=== PATIENT | male | born 1970 ===

== ENCOUNTER 2019-07-25 03:21 | Inpatient (IN) | payer OTHER ==
[~2019-07-25] VITALS: Ht 162.6 cm; Wt 78.7 kg
[2019-07-25 04:58] VITALS: BP 119/83
[2019-07-25] MEDS ORDERED: ATOR20TA37 PO (06:23)
[2019-07-25 06:35] VITALS: BP 109/67
[2019-07-25 07:21] LABS: MEAN CORPUSCULAR HEMOGLOBIN 30.2 pg (27.5-34.5); MEAN CORPUSCULAR HGB CONC 33.3 g/dL (33.2-36.2); MEAN CORPUSCULAR VOLUME 90.8 fL (81-97); MEAN PLATELET VOLUME 8.1 fL (7.4-10.4); PLATELET COUNT 290 x10^3/uL (130-400); RED BLOOD COUNT 5.31 x10^6/uL (4.38-5.82); RED CELL DISTRIBUTION WIDTH 13.2 % (9.4-14.8)
[2019-07-25 07:27] LABS: ALBUMIN 3.8 g/dL (3.4-5.0); ANION GAP 4 mmol/L (5-15); CALCIUM 8.7 mg/dL (8.5-10.1); CHLORIDE 108 mmol/L (98-107)
[2019-07-25 07:31] LABS: ALANINE AMINOTRANSFERASE 71 U/L (12-78); ALKALINE PHOSPHATASE 66 U/L (45-117); BILIRUBIN,TOTAL 0.7 mg/dL (0.2-1.0); CREATINE KINASE, TOTAL 832 U/L (39-308); CREATININE 0.81 mg/dL (0.7-1.3); TOTAL PROTEIN 7.2 g/dL (6.4-8.2)
[2019-07-25 08:16] LABS: BASOPHILS % (AUTO) 0 % (0-1); EOSINOPHILS # (AUTO) 0.03 x10^3/uL (0-0.4); EOSINOPHILS % (AUTO) 0 % (1-7); LYMPHOCYTES # (AUTO) 0.55 x10^3/uL (1-3.4); LYMPHOCYTES % (AUTO) 5 % (22-44); MD SCAN; MONOCYTES # (AUTO) 0.05 x10^3/uL (0.2-0.8); MONOCYTES % (AUTO) 0 % (2-9); NEUTROPHILS # (AUTO) 11.62 x10^3/uL (1.8-6.8); NEUTROPHILS % (AUTO) 95 % (42-75)
[2019-07-25] MEDS ORDERED: ACETAMINOPHEN 325 MG TABLET PO PRN (09:00)
[2019-07-25] MEDS ORDERED: LORazepam 2 MG/ML, 1ML IVPush PRN (09:00)
[2019-07-25] MEDS ORDERED: DOCUSATE 100 MG CAPSULE PO PRN (09:00)
[2019-07-25] MEDS ORDERED: LABETALOL 5MG/ML, 20ML IVPush PRN (09:00)
[2019-07-25] MEDS ORDERED: morphine SULFATE 10 MG/ML, 1ML IVPush PRN (09:00)
[2019-07-25] MEDS ORDERED: ONDANSETRON 2MG/ML, 2ML IVPush PRN (09:00)
[2019-07-25] MEDS ORDERED: POLYETHYLENE GLYCOL 17 GM PACKET PO PRN (09:00)
[2019-07-25] MEDS ORDERED: ENALAPRILAT 1.25 MG/ML, 2ML IVPush PRN (09:00)
[2019-07-25] MEDS ORDERED: BISACODYL 10 MG SUPP PR PRN (09:00)
[2019-07-25] MEDS ORDERED: PLEASE ENTER ALLERGIES MC SCH (09:30)
[2019-07-25] MEDS ORDERED: DEXAMETHASONE 4 MG/ML, 5ML IVPush SCH (09:30)
[2019-07-25] MEDS ORDERED: LEVETIRACETAM 500 MG in SODIUM CHLORIDE 0.9% 100 ML IV SCH (09:30)
[2019-07-25] MEDS ORDERED: GADOTERATE 10 MMOL/20 ML SYR ONE (12:22)
[2019-07-25 13:34] VITALS: BP 116/75
[2019-07-25] MEDS: ENOXAPARIN 40 MG/0.4 ML SQ SCH (13:42)
[2019-07-25 18:33] VITALS: BP 114/73
[2019-07-25] MEDS: LEVETIRACETAM 500 MG TABLET PO SCH (21:19)
[2019-07-26 01:13] VITALS: BP 120/74
[2019-07-26 06:15] LABS: ALANINE AMINOTRANSFERASE 56 U/L (12-78); ALBUMIN 3.2 g/dL (3.4-5.0); ANION GAP 6 mmol/L (5-15); BASOPHILS # (AUTO) 0.02 x10^3/uL (0-0.1); BASOPHILS % (AUTO) 0 % (0-1); CALCIUM 8.6 mg/dL (8.5-10.1); CHLORIDE 108 mmol/L (98-107); EOSINOPHILS # (AUTO) 0.13 x10^3/uL (0-0.4); EOSINOPHILS % (AUTO) 1 % (1-7); LYMPHOCYTES # (AUTO) 2.24 x10^3/uL (1-3.4); LYMPHOCYTES % (AUTO) 17 % (22-44); MD NO; MEAN CORPUSCULAR HEMOGLOBIN 30.2 pg (27.5-34.5); MEAN CORPUSCULAR HGB CONC 33.7 g/dL (33.2-36.2); MEAN CORPUSCULAR VOLUME 89.6 fL (81-97); MEAN PLATELET VOLUME 8.4 fL (7.4-10.4); MONOCYTES # (AUTO) 1.07 x10^3/uL (0.2-0.8); MONOCYTES % (AUTO) 8 % (2-9); NEUTROPHILS # (AUTO) 9.65 x10^3/uL (1.8-6.8); NEUTROPHILS % (AUTO) 74 % (42-75); PLATELET COUNT 274 x10^3/uL (130-400); RED BLOOD COUNT 4.94 x10^6/uL (4.38-5.82); RED CELL DISTRIBUTION WIDTH 13.4 % (9.4-14.8)
[2019-07-26 06:26] LABS: ALKALINE PHOSPHATASE 58 U/L (45-117); BILIRUBIN,TOTAL 0.4 mg/dL (0.2-1.0); CREATINE KINASE, TOTAL 265 U/L (39-308); CREATININE 1.14 mg/dL (0.7-1.3); TOTAL PROTEIN 6.4 g/dL (6.4-8.2)
[2019-07-26 07:17] VITALS: BP 106/62
[2019-07-26] MEDS: LEVETIRACETAM 500 MG TABLET PO SCH (09:28)
[2019-07-26] MEDS: ENOXAPARIN 40 MG/0.4 ML SQ SCH (09:29)
[2019-07-26 13:18] VITALS: BP 100/60
[2019-07-26] MEDS ORDERED: LEVE500T53 PO (13:31)
[2019-07-26] MEDS ORDERED: POLY17PO5 PO (13:31)
== END 2019-07-26 15:34 | disposition home or self-care (01) | DRG 101 ==
LOC: 4WST 04:44 → DCLOUNGE 07-26 15:24
PROVIDERS: ADMIT Internal Medicine; ATTEND Internal Medicine
DX: R56.9 Unspecified convulsions (principal); M62.82 Rhabdomyolysis; E78.5 Hyperlipidemia, unspecified; F17.200 Nicotine dependence, unspecified, uncomplicated; Z79.899 Other long term (current) drug therapy
CPT/HCPCS: 36415; 70553; 80053; 82550; 84443; 85025; 93306; 95816; G0378; J1650; A9575